=== PATIENT | female | born 1945 | race Caucasian/White ===

== ENCOUNTER 2017-06-13 23:03 | Emergency (ER) | payer OTHER ==
[~2017-06-13] VITALS: Ht 165.1 cm; Wt 110.6 kg
[~2017-06-13 23:03] MED LIST: ABREVA2 GM TP; ALPRAZOLAM0.25 M2 PO; AMBIEN5 MG PO; AMLODIPINE BESYL5 MG PO; AMOX TR-K CLV1 EAC4 PO; ARTHROTEC 751 TABLET PO; ASPIR 8181 MG PO; BUTALB-APAP-CA1 EACH PO; CATAPRES0.2 MG PO; CEFTIN500 MG PO; CIPRO500 MG PO; CLONAZEPAM1 M1 PO; CLONIDINE HCL0.2 MG; COZAAR100 MG PO; CRESTOR40 MG PO; DIOVAN80 MG PO; ELAVIL10 MG PO; FLAGYL500 MG PO; FLEXERIL5 MG PO; FLUOXETINE HCL40 MG PO; HYDROCODON-ACE1 EAC7 PO; HYDROCODON-ACE1 EAC8 PO; INDERAL20 MG; KLONOPIN1 MG PO; KLOR-CON 1010 ME1 PO; LASIX20 MG PO; LEVOFLOXACIN500 MG PO; LEVOFLOXACIN750 MG PO; LIPITOR10 MG PO; LOSARTAN POTAS100 MG PO; LOW DOSE ASPIRI81 M1 PO; MAXZIDE 37.5 M1 EACH PO; METAXALONE800 MG PO; METFORMIN HCL500 M1 PO; METRONIDAZOLE500 MG PO; MOTRIN400 MG PO; MOTRIN800 MG PO; MUCINEX600 MG PO; NASACORT AQ16.5 GM BOTH NARES; NASACORT10.8 ML BOTH NARES; NORCO 5/3251 TABLET PO; NORCO 7.5/321 TABLET PO; PHENTERMINE HCL15 MG PO; PREDNISONE20 MG PO; PROAIR HFA8.5 GM IH; PROZAC40 MG PO; SYMBICORT60 INHALA1 IH; TRIAMTERENE-HC1 EACH PO; VENTOLIN HFA18 GM IH; WELLBUTRIN XL300 MG PO; ZOCOR20 MG PO; ZOFRAN4 MG PO
[2017-06-13 23:18] VITALS: BP 132/87
[2017-06-14 01:57] LABS: HEMATOCRIT 41.5 % (36.0-46.0); MCH 28.6 PG (29.0-34.0); MCHC 30.8 G/DL (30.0-36.0); MCV 92.8 FL (83-99); MEAN PLAT.VOLUME 8.4 uM^3 (9.5-12.4); PLATELET COUNT 357 K/uL (156-360); RBC DIS.WIDTH-CV 14.7 % (11.8-14.6); RBC DIS.WIDTH-SD 50.4 % (39-53); RED BLOOD COUNT 4.47 M/uL (3.80-5.20); WHITE BLOOD COUNT 9.6 K/uL (4.1-10.2)
[2017-06-14 02:09] LABS: CHLORIDE 101 mEq/L (99-109); POTASSIUM 4.4 mEq/L (3.7-5.4); SODIUM 140 mEq/L (136-147)
[2017-06-14 02:10] LABS: GLUCOSE 120 mg/dL (70-99)
[2017-06-14 02:12] LABS: ANION GAP 12 MEQ/L (2-14)
[2017-06-14 02:14] LABS: GFR ESTIMATE (CALCULATED) 52 mL/min/
[2017-06-14 02:15] LABS: UREA NITROGEN (BUN) 24 mg/dL (9-23)
[2017-06-14 02:21] LABS: TROP-I INTERPRETATION NEGATIVE; TROPONIN-I < 0.01 ng/mL (0.0-0.30)
== END 2017-06-14 02:00 | disposition left against medical advice (07) ==
LOC: EME 23:03
DX: R53.1 Weakness (principal); Z53.21 Procedure and treatment not carried out due to patient leaving prior to being seen by health care provider
CPT/HCPCS: 71020; 80048; 84484; 85027; 93005

== ENCOUNTER 2017-08-13 10:00 | Emergency (ER) | payer OTHER ==
[~2017-08-13] VITALS: Ht 162.6 cm; Wt 113.6 kg
[2017-08-13] MEDS ORDERED: CLINDAMYCIN HC300 MG PO (10:27)
[2017-08-13] MEDS ORDERED: NAPROSYN500 MG PO (12:28)
[2017-08-13 12:38] VITALS: BP 118/69
== END 2017-08-13 12:40 | disposition home or self-care (01) ==
LOC: EME 10:00
DX: G57.12 Meralgia paresthetica, left lower limb (principal); J44.9 Chronic obstructive pulmonary disease, unspecified; I10 Essential (primary) hypertension; E11.9 Type 2 diabetes mellitus without complications; K21.9 Gastro-esophageal reflux disease without esophagitis; Z85.9 Personal history of malignant neoplasm, unspecified; Z95.0 Presence of cardiac pacemaker; Z87.891 Personal history of nicotine dependence; Z88.5 Allergy status to narcotic agent; Z88.1 Allergy status to other antibiotic agents
CPT/HCPCS: 93971; 99281; 99283

== ENCOUNTER 2017-11-19 16:19 | Emergency (ER) | payer OTHER ==
[~2017-11-19] VITALS: Ht 162.6 cm; Wt 115.2 kg
[~2017-11-19 16:19] MED LIST changes: +CLINDAMYCIN HC300 MG PO; +NAPROSYN500 MG PO
[2017-11-19 18:24] LABS: BASOPHIL (%) 0.3 % (0-1); EOSINOPHIL (%) 0.4 % (0-5); EOSINOPHIL COUNT 0.1 K/uL (0-0.3); HEMATOCRIT 45.7 % (36.0-46.0); HEMOGLOBIN 14.6 G/DL (11.9-15.5); IMMATURE GRANULOCYTE (%) 1.2 % (0.0-0.7); LYMPHOCYTE (%) 30.3 % (15-42); LYMPHOCYTE COUNT 3.8 K/uL (1.0-2.8); MCH 28.9 PG (29.0-34.0); MCHC 31.9 G/DL (30.0-36.0); MCV 90.5 FL (83-99); MONOCYTE (%) 8.8 % (3-12); MONOCYTE COUNT 1.1 K/uL (0-0.8); NEUTROPHIL COUNT 7.3 K/uL (1.8-6.4); PLATELET COUNT 308 K/uL (156-360); RBC DIS.WIDTH-CV 14.1 % (11.8-14.6); RBC DIS.WIDTH-SD 46.6 % (39-53); RED BLOOD COUNT 5.05 M/uL (3.80-5.20); WHITE BLOOD COUNT 12.4 K/uL (4.1-10.2)
[2017-11-19 18:34] LABS: ALBUMIN 3.8 g/dL (3.2-4.8); CHLORIDE 95 mEq/L (99-109); POTASSIUM 3.3 mEq/L (3.7-5.4); SODIUM 138 mEq/L (136-147)
[2017-11-19 18:37] LABS: GLUCOSE 107 mg/dL (70-99); TOTAL PROTEIN 6.7 g/dL (6.4-8.3)
[2017-11-19 18:39] LABS: TOTAL BILIRUBIN 0.5 mg/dL (0.0-1.0)
[2017-11-19 18:40] LABS: ALKALINE PHOSPHATASE 72 IU/L (3-129); CREATININE 1.1 mg/dL (0.6-1.3); GFR ESTIMATE (CALCULATED) 52 mL/min/
[2017-11-19 18:41] LABS: UREA NITROGEN (BUN) 33 mg/dL (9-23)
[2017-11-19 18:42] LABS: AST (GOT) 26 IU/L (2-34)
[2017-11-19 18:43] LABS: ALT (GPT) 22 IU/L (3-49)
[2017-11-19 18:47] LABS: APPEARANCE CLEAR ((CLEAR)); BILIRUBIN NEGATIVE; BLOOD NEGATIVE; COLOR YELLOW ((YELLOW)); GLUCOSE (STRIP) NEGATIVE; KETONES NEGATIVE; LEUKOCYTES TRACE; NITRITE NEGATIVE; PROTEIN (STRIP) NEGATIVE; SPECIFIC GRAVITY 1.017 (1.000-1.030); UROBILINOGEN 0.2 MG/DL (0.2-1.0)
[2017-11-19 18:50] LABS: TROP-I INTERPRETATION NEGATIVE; TROPONIN-I < 0.01 ng/mL (0.0-0.30)
[2017-11-19 18:51] LABS: BACTERIA NONE SEEN /HPF; EPITHELIAL CELLS RARE /HPF; MUCUS TRACE /LPF; RED BLOOD CELLS 0-5 /HPF (0-5); UCUL ADDED? NO; WHITE BLOOD CELLS 0-5 /HPF (0-5)
[2017-11-19] MEDS ORDERED: ZITHROMAX Z-PA250 MG PO (21:09)
[2017-11-19 22:07] VITALS: BP 152/88
== END 2017-11-19 22:09 | disposition home or self-care (01) ==
LOC: EME 16:19
PROVIDERS: Emergency Medicine
DX: J20.9 Acute bronchitis, unspecified (principal); J44.9 Chronic obstructive pulmonary disease, unspecified; Z99.81 Dependence on supplemental oxygen; S50.02XA Contusion of left elbow, initial encounter; M25.512 Pain in left shoulder; W18.30XA Fall on same level, unspecified, initial encounter; I73.9 Peripheral vascular disease, unspecified; Z87.01 Personal history of pneumonia (recurrent); Z87.891 Personal history of nicotine dependence; K21.9 Gastro-esophageal reflux disease without esophagitis; Z88.1 Allergy status to other antibiotic agents; Z88.5 Allergy status to narcotic agent
CPT/HCPCS: 70450; 71046; 72125; 73030; 73080; 80053; 81003; 83880; 84484; 85025; 93005; 94640; 99281; 99285; J1100; J2930; J7030

== ENCOUNTER 2018-03-13 14:08 | Inpatient (IN) | payer OTHER ==
[~2018-03-13] VITALS: Ht 162.6 cm; Wt 112.2 kg
[~2018-03-13 14:08] MED LIST changes: +ZITHROMAX Z-PA250 MG PO
[2018-03-13 14:49] LABS: BASOPHIL (%) 0.3 % (0-1); EOSINOPHIL (%) 0.4 % (0-5); EOSINOPHIL COUNT 0.1 K/uL (0-0.3); IMMATURE GRANULOCYTE (%) 0.7 % (0.0-0.7); LYMPHOCYTE (%) 27.2 % (15-42); LYMPHOCYTE COUNT 3.1 K/uL (1.0-2.8); MCH 30.4 PG (29.0-34.0); MCHC 32.4 G/DL (30.0-36.0); MCV 93.7 FL (83-99); MONOCYTE (%) 8.7 % (3-12); NEUTROPHIL (%) 62.7 % (45-76); NEUTROPHIL COUNT 7.1 K/uL (1.8-6.4); PLATELET COUNT 247 K/uL (156-360); RBC DIS.WIDTH-CV 14.5 % (11.8-14.6); RBC DIS.WIDTH-SD 49.6 % (39-53); RED BLOOD COUNT 3.95 M/uL (3.80-5.20); WHITE BLOOD COUNT 11.3 K/uL (4.1-10.2)
[2018-03-13 14:58] LABS: CHLORIDE 98 mEq/L (99-109); POTASSIUM 3.8 mEq/L (3.7-5.4); SODIUM 140 mEq/L (136-147)
[2018-03-13 15:00] LABS: GLUCOSE 117 mg/dL (70-99)
[2018-03-13 15:04] LABS: CREATININE 0.8 mg/dL (0.6-1.3); GFR ESTIMATE (CALCULATED) > 59 mL/min/
[2018-03-13 15:05] LABS: UREA NITROGEN (BUN) 14 mg/dL (9-23)
[2018-03-13 15:53] LABS: TROP-I INTERPRETATION NEGATIVE; TROPONIN-I < 0.01 ng/mL (0.0-0.30)
[2018-03-13 16:11] LABS: ALBUMIN 4.3 g/dL (3.2-4.8)
[2018-03-13 16:14] LABS: TOTAL PROTEIN 7.3 g/dL (6.4-8.3)
[2018-03-13 16:16] LABS: TOTAL BILIRUBIN 0.7 mg/dL (0.0-1.0)
[2018-03-13 16:17] LABS: ALKALINE PHOSPHATASE 72 IU/L (3-129)
[2018-03-13 16:19] LABS: AST (GOT) 27 IU/L (2-34)
[2018-03-13 16:20] LABS: ALT (GPT) 23 IU/L (3-49); LIPASE 7 U/L (1.0-51.0)
[2018-03-13 16:22] LABS: PTT 20.3 SEC (25-37)
[2018-03-13] MEDS ORDERED: COZAAR25 MG PO (17:01)
[2018-03-13] MEDS ORDERED: FLONASE16 G1 BOTH NARES (17:01)
[2018-03-13] MEDS ORDERED: LO-DOSE ASPIRIN81 M1 PO (17:02)
[2018-03-13] MEDS ORDERED: ACTOS15 MG PO (17:02)
[2018-03-13] MEDS ORDERED: NYSTOP60 GM TP (17:03)
[2018-03-13] MEDS ORDERED: ZOLOFT50 MG PO (17:04)
[2018-03-13] MEDS ORDERED: MYRBETRIQ50 MG PO (17:04)
[2018-03-13] MEDS ORDERED: TYLENOL EXTRA500 MG PO (17:04)
[2018-03-13] MEDS ORDERED: AUGMENTIN875 MG PO (17:05)
[2018-03-13] MEDS ORDERED: B-COMPLEX-VITA1 EACH PO (17:06)
[2018-03-13] MEDS ORDERED: LIPITOR40 MG PO (17:06)
[2018-03-13] MEDS ORDERED: NORCO 5/3251 TABLET PO (17:07)
[2018-03-13 18:18] VITALS: BP 123/60
[2018-03-13 23:50] VITALS: BP 117/65
[2018-03-14 03:55] VITALS: BP 118/74
[2018-03-14 05:36] LABS: HEMATOCRIT 35.7 % (36.0-46.0); HEMOGLOBIN 11.3 G/DL (11.9-15.5); MCH 29.3 PG (29.0-34.0); MCHC 31.7 G/DL (30.0-36.0); MCV 92.5 FL (83-99); PLATELET COUNT 256 K/uL (156-360); RBC DIS.WIDTH-CV 14.5 % (11.8-14.6); RBC DIS.WIDTH-SD 49.2 % (39-53); RED BLOOD COUNT 3.86 M/uL (3.80-5.20); WHITE BLOOD COUNT 6.4 K/uL (4.1-10.2)
[2018-03-14 05:48] LABS: TROP-I INTERPRETATION NEGATIVE; TROPONIN-I < 0.01 ng/mL (0.0-0.30)
[2018-03-14 06:00] LABS: CHLORIDE 99 MEQ/L (99-109); CREATININE 0.9 MG/DL (0.6-1.3); GFR ESTIMATE (CALCULATED) > 59 mL/min/; POTASSIUM 3.7 MEQ/L (3.7-5.4); SODIUM 138 MEQ/L (136-147); UREA NITROGEN (BUN) 17 mg/dL (9-23)
[2018-03-14 06:01] LABS: GLUCOSE 220 mg/dL (70-99)
[2018-03-14 07:53] VITALS: BP 135/73
[2018-03-14 12:11] VITALS: BP 123/74
[2018-03-14 15:23] VITALS: BP 117/51
[2018-03-14 19:37] VITALS: BP 136/64
[2018-03-15] VITALS: BP 124/75
[2018-03-15 04:00] VITALS: BP 145/82
[2018-03-15 06:08] LABS: BASOPHIL (%) 0.2 % (0-1); EOSINOPHIL (%) 0 % (0-5); HEMATOCRIT 36.5 % (36.0-46.0); HEMOGLOBIN 11.4 G/DL (11.9-15.5); IMMATURE GRANULOCYTE (%) 1.5 % (0.0-0.7); LYMPHOCYTE (%) 11.1 % (15-42); LYMPHOCYTE COUNT 1.5 K/uL (1.0-2.8); MCHC 31.2 G/DL (30.0-36.0); MCV 92.9 FL (83-99); MONOCYTE (%) 3.8 % (3-12); MONOCYTE COUNT 0.5 K/uL (0-0.8); NEUTROPHIL (%) 83.4 % (45-76); NEUTROPHIL COUNT 10.9 K/uL (1.8-6.4); PLATELET COUNT 287 K/uL (156-360); RBC DIS.WIDTH-CV 14.1 % (11.8-14.6); RBC DIS.WIDTH-SD 48.4 % (39-53); RED BLOOD COUNT 3.93 M/uL (3.80-5.20); WHITE BLOOD COUNT 13.1 K/uL (4.1-10.2)
[2018-03-15 07:01] LABS: CHLORIDE 105 MEQ/L (99-109); CREATININE 0.8 MG/DL (0.6-1.3); GFR ESTIMATE (CALCULATED) > 59 mL/min/; GLUCOSE 202 mg/dL (70-99); POTASSIUM 3.6 MEQ/L (3.7-5.4); UREA NITROGEN (BUN) 21 mg/dL (9-23)
[2018-03-15 07:02] LABS: SODIUM 145 MEQ/L (136-147)
[2018-03-15 07:42] VITALS: BP 137/71
[2018-03-15 12:11] VITALS: BP 127/64
[2018-03-15 15:50] VITALS: BP 129/77
[2018-03-15 19:42] VITALS: BP 129/69
[2018-03-16] VITALS: BP 130/77
[2018-03-16 03:42] VITALS: BP 131/72
[2018-03-16 05:21] LABS: HEMATOCRIT 36.1 % (36.0-46.0); HEMOGLOBIN 11.1 G/DL (11.9-15.5); MCH 28.7 PG (29.0-34.0); MCHC 30.7 G/DL (30.0-36.0); MCV 93.3 FL (83-99); PLATELET COUNT 285 K/uL (156-360); RBC DIS.WIDTH-CV 14.1 % (11.8-14.6); RBC DIS.WIDTH-SD 48.9 % (39-53); RED BLOOD COUNT 3.87 M/uL (3.80-5.20); WHITE BLOOD COUNT 13.6 K/uL (4.1-10.2)
[2018-03-16 06:20] LABS: CHLORIDE 102 MEQ/L (99-109); CREATININE 0.8 MG/DL (0.6-1.3); GFR ESTIMATE (CALCULATED) > 59 mL/min/; GLUCOSE 200 mg/dL (70-99); POTASSIUM 3.4 MEQ/L (3.7-5.4); SODIUM 142 MEQ/L (136-147); UREA NITROGEN (BUN) 27 mg/dL (9-23)
[2018-03-16 07:29] LABS: ABS NEUTROPHIL COUNT 11.9; BAND NEUTROPHILS 3.5 % (0-8.0); EOSINOPHIL ABS CT 0; LYMPHOCYTES 10.5 % (15.0-45.0); MONOCYTES 1.8 % (0-9.0); SEG.NEUTROPHILS 84.2 % (46.0-76.0)
[2018-03-16 07:43] VITALS: BP 166/79
[2018-03-16 11:45] VITALS: BP 126/68
[2018-03-16 15:27] VITALS: BP 156/82
[2018-03-16 20:06] VITALS: BP 130/65
[2018-03-17] VITALS: BP 130/72
[2018-03-17 03:32] VITALS: BP 144/77
[2018-03-17 07:51] VITALS: BP 184/95
[2018-03-17 12:00] VITALS: BP 177/71
[2018-03-17 15:50] VITALS: BP 131/60
[2018-03-17 20:09] VITALS: BP 129/66
[2018-03-18] VITALS: BP 150/70
[2018-03-18 04:00] VITALS: BP 127/76
[2018-03-18 07:07] VITALS: BP 152/65
[2018-03-18] MEDS ORDERED: PREDNISONE20 MG PO (10:31)
[2018-03-18] MEDS ORDERED: MUCINEX600 MG PO (10:31)
[2018-03-18] MEDS ORDERED: CEFTIN500 MG PO (10:34)
[2018-03-18 11:17] VITALS: BP 152/70
== END 2018-03-18 14:12 | DRG 871 ==
LOC: EME 14:08 → 5SOUTH 16:32 → EDOF 16:32 → ENRESERV 16:33 → 5SOUTH 17:58
PROVIDERS: Internal Medicine; Nurse Practitioner Family; Student in an Organized Health Care Education/Training Program
DX: A41.9 Sepsis, unspecified organism (principal); J18.9 Pneumonia, unspecified organism; J44.0 Chronic obstructive pulmonary disease with (acute) lower respiratory infection; J44.1 Chronic obstructive pulmonary disease with (acute) exacerbation; F11.20 Opioid dependence, uncomplicated; I95.9 Hypotension, unspecified; E11.65 Type 2 diabetes mellitus with hyperglycemia; T38.0X5A Adverse effect of glucocorticoids and synthetic analogues, initial encounter; Z95.0 Presence of cardiac pacemaker; Z99.81 Dependence on supplemental oxygen; I10 Essential (primary) hypertension; G47.33 Obstructive sleep apnea (adult) (pediatric); E78.5 Hyperlipidemia, unspecified; F32.9 Major depressive disorder, single episode, unspecified; F41.9 Anxiety disorder, unspecified; M19.90 Unspecified osteoarthritis, unspecified site; Z66 Do not resuscitate; M48.061 Spinal stenosis, lumbar region without neurogenic claudication
CPT/HCPCS: 71046; 80048; 80053; 81003; 82948; 83605; 83690; 84484; 85025; 85025 91; 85027; 85610; 85730; 87040; 87449; 94010; 94640; 94640 76; 94660; 94760; 94799; 99202; 99281; 99285; J0456; J0696; J1650; J1815; J2543; J2920; J2930; J7030

== ENCOUNTER 2018-03-22 15:14 | Emergency (ER) | payer OTHER ==
[~2018-03-22] VITALS: Ht 157.5 cm; Wt 105.9 kg
[~2018-03-22 15:14] MED LIST changes: +ACTOS15 MG PO; +AUGMENTIN875 MG PO; +B-COMPLEX-VITA1 EACH PO; +COZAAR25 MG PO; +FLONASE16 G1 BOTH NARES; +LIPITOR40 MG PO; +LO-DOSE ASPIRIN81 M1 PO; +MYRBETRIQ50 MG PO; +NYSTOP60 GM TP; +TYLENOL EXTRA500 MG PO; +ZOLOFT50 MG PO
[2018-03-22 16:03] LABS: HEMATOCRIT 40.1 % (36.0-46.0); HEMOGLOBIN 13.1 G/DL (11.9-15.5); MCHC 32.7 G/DL (30.0-36.0); PLATELET COUNT 259 K/uL (156-360); RBC DIS.WIDTH-SD 47.2 % (39-53); RED BLOOD COUNT 4.36 M/uL (3.80-5.20)
[2018-03-22 16:15] LABS: CHLORIDE 97 mEq/L (99-109); POTASSIUM 3.3 mEq/L (3.7-5.4); SODIUM 137 mEq/L (136-147)
[2018-03-22 16:20] LABS: GFR ESTIMATE (CALCULATED) 58 mL/min/
[2018-03-22 16:21] LABS: UREA NITROGEN (BUN) 36 mg/dL (9-23)
[2018-03-22 16:24] LABS: TROP-I INTERPRETATION NEGATIVE; TROPONIN-I < 0.01 ng/mL (0.0-0.30)
[2018-03-22 16:26] LABS: GLUCOSE 119 mg/dL (70-99)
[2018-03-22 19:11] LABS: TROP-I INTERPRETATION NEGATIVE; TROPONIN-I < 0.01 ng/mL (0.0-0.30)
[2018-03-22 19:43] VITALS: BP 117/85
== END 2018-03-22 19:44 ==
LOC: EME 15:14
PROVIDERS: Emergency Medicine
DX: R07.9 Chest pain, unspecified (principal); J44.9 Chronic obstructive pulmonary disease, unspecified; M79.601 Pain in right arm; M79.89 Other specified soft tissue disorders; I10 Essential (primary) hypertension; Z95.0 Presence of cardiac pacemaker; Z79.82 Long term (current) use of aspirin; Z87.891 Personal history of nicotine dependence
CPT/HCPCS: 71046; 71275; 80048; 84484; 85027; 85379; 93005; 99281; 99285; J1200; J7040